=== PATIENT | female | born 1995 | race Caucasian/White ===

== ENCOUNTER 2023-11-13 13:27 | Outpatient (CLI) | payer OTHER, SELFPAY ==
--- NOTE | ~2023-11-13 | XR_ITS ---
Supine and upright views of the abdomen Clinical history: Abdominal pain Findings: Bowel gas pattern is nonspecific, with focal distended left upper quadrant small bowel loop .. No evidence for obstruction or free air. Cholecystectomy clips noted. No abnormal mass lesion or c alcification is seen. Osseous structures are intact. Impression: Focal distended left upper quadrant small bowel loop, nonspecific. Reviewed, dictated and finalized at location . Impression: Focal distended left upper quadrant small bowel loop, nonspecific.
== END 2023-11-13 13:28 ==
PROVIDERS: PCP Physician Assistant; Visit Provider Physician Assistant
DX: R10.9 Unspecified abdominal pain (principal)
CPT/HCPCS: 74018

== ENCOUNTER 2024-08-11 16:22 | Emergency (ER) | payer OTHER, SELFPAY ==
--- NOTE | 2024-08-11 16:31 | ED.SKABFB ---
HPI - Skin/Abscess/Foreign Bdy General Chief complaint: Skin/Abscess/Foreign Body Stated complaint: rash Time Seen by Provider: 08/11/24 16:31 Source: patient Mode of arrival: ambulatory Limitations: no limitations History of Present Illness HPI narrative: Ashley is a 28-year-old female patient presenting to the clinic today with complaints of a rash x1 day. She reports rash is itchy and painful. Rash is to the inner bilateral thighs. Just started Lamictal 2 weeks ago. Also reporting sore throat. 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 Denies fever, chills, body aches, or joint pain Related Data Home Medications ?Medication ?Instructions ?Recorded ?Confirmed ?Last Taken ?Type cariprazine 1.5 mg capsule mg 08/11/24 Unknown History (Vraylar) ergocalciferol (vitamin D2) 1,250 08/11/24 Unknown History mcg (50,000 unit) capsule lamotrigine 25 mg tablet mg 08/11/24 Unknown History levothyroxine 125 mcg tablet mcg 08/11/24 Unknown History trazodone 50 mg tablet mg 08/11/24 Unknown History venlafaxine 75 mg capsule,extended mg PO 08/11/24 Unknown History release 24 hr Allergies Allergy/AdvReac Type Severity Reaction Status Date / Time metformin Allergy Intermediate Rash Verified 08/11/24 16:46 Review of Systems Review of Systems: Pertinent positives per HPI. Patient denies any fever, chills, headache, visual changes, dizziness, cough, shortness of breath, chest pain, palpitations, nausea, vomiting, diarrhea, constipation, abdominal pain, or any urinary issues. [facility] Family History Family History Mother Patient's mother is in good health Father No family history of hypertension Patient's father is in good health Family history of lung cancer Grandparent Diabetes mellitus Acute myocardial infarction, Onset Age: 60 Family history of dementia Other Carcinoma of colon Social History Social History Smoking status: Never smoker Alcohol intake: current Comments At the time of my signature, I reviewed and agree with the nursing past medical, surgical, social, and family history. There is no relevant family history pertinent to the patient complaint. Exam Narrative: General: Well-developed, well nourished, in no apparent distress Head: Normocephalic, atraumatic Eyes: Pupils equally round and reactive to light bilaterally, EOM intact, sclera and conjunctive clear, no discharge, lids normal Ears: TMs intact and clear, ear canals clear, no drainage, grossly hearing normal. Nose: Nares patent, no discharge, no inflammation, no sinus tenderness. Mouth: Oropharynx without lesions or masses, good dentition, MMM. Neck: Supple, trachea midline, no enlargement of anterior or posterior cervical nodes, no thyroid masses or goiter palpable. Cardio: Regular rate and rhythm, s1 and s2 normal, no murmur appreciated. Resp: Clear to auscultation bilaterally anteriorly and posteriorly, no rhonchi, rales, wheezing or rubs Integumentary: [place], warm, and dry, intact without lesion, red, raised, itchy/pain rash with small blisters to the bilateral inner thighs Course Course Emergency Course: Portions of this record may have been created with voice recognition software. Level of Care: Express Care Visit Vital Signs Vital signs: Vital Signs Temperature 37.1 C 08/11/24 16:40 Pulse Rate 68 08/11/24 16:40 Respiratory Rate 16 08/11/24 16:40 Blood Pressure 126/84 08/11/24 16:40 Pulse Oximetry 100 08/11/24 16:40 Temperature 37.1 C 08/11/24 16:40 Pulse Rate 68 08/11/24 16:40 Respiratory Rate 16 08/11/24 16:40 Blood Pressure 126/84 08/11/24 16:40 Pulse Oximetry 100 08/11/24 16:40 Vital signs reviewed MDM - Skin/Abscess/Foreign Bdy MDM Narrative Medical decision making narrative: At the time of visit patient is resting comfortably on the exam table. Patient appears to be nontoxic. Labs: Strep test was negative in the clinic today. We will send for culture. Plan: I suspect patient has nonspecific rash to the bilateral inner thigh but cannot rule out a Lamictal rash. Recommend holding the Lamictal at this time and following up with the psychiatrist. Supportive measures were discussed with the patient and they voiced understanding discharge instructions and agrees to treatment plan. Return precautions reviewed Differential Diagnosis Differential diagnosis: Likely abscess of skin or subcutaneous tissue, viral exanthem, dermatophytosis, urticaria, herpes zoster, allergic reaction to drug, cellulitis, eczema, insect bites, impetigo, contact dermatitis and other Lab Data Labs: Lab Results 08/11/24 Range/Units 16:54 POC Grp A Strep Screen Negative (Negative) Discharge Plan Discharge Clinical Impression: Rash, Sore throat Patient Disposition: Home, Self-Care Condition: Stable Instructions: Antibiotic Form, Pharyngitis (ED), Acute Rash (ED) Additional Instructions: Strep test is negative in the clinic today. We will send strep for culture. Rash does not appear to look like Danilo Mahad Syndrome Take pictures of your rash and show your psychiatrist Recommend stopping the Lamictal and follow-up with your psychiatrist. May moisture the area as discussed. May apply hydrocortisone cream as discussed Follow up with your PCP as needed. Go to the ER if symptoms worsen. Patient Language: Urdu Prescriptions: No Action venlafaxine 75 mg capsule,extended release 24hr PO trazodone 50 mg tablet lamotrigine 25 mg tablet levothyroxine 125 mcg tablet ergocalciferol (vitamin D2) 1,250 mcg (50,000 unit) capsule Vraylar 1.5 mg capsule Follow-up/Referrals: Leny,NUPUR Terry [Primary Care Provider] - Time of Disposition: 16:56 Quality NIHSS Nursing Documentation ED NIHSS nursing documentation: reviewed/agree
[2024-08-11 16:40] VITALS: BP 126/84; PULSE 68; RESP 16; TEMP 37.1; O2SAT 100
[2024-08-11 16:55] LABS: EDSTREPNEGPOS1 Negative (Negative)
== END 2024-08-11 16:58 | disposition home or self-care (01) ==
PROVIDERS: Emergency Provider Nurse Practitioner Family; PCP Physician Assistant
DX: R21 Rash and other nonspecific skin eruption (principal); J02.9 Acute pharyngitis, unspecified
CPT/HCPCS: 87081; 87880; 99213; G0463